=== PATIENT | male | born 1990 | race Caucasian/White ===

== ENCOUNTER 2021-10-20 09:08 | Emergency (ER) | payer OTHER | END 2021-10-20 13:39 | disposition home or self-care (01) | LOC: ER1 09:08 | DX: S16.1XXA Strain of muscle, fascia and tendon at neck level, initial encounter (principal); W19.XXXA Unspecified fall, initial encounter | CPT/HCPCS: 72040; 73030; 99283 ==

== ENCOUNTER 2021-10-24 10:55 | Emergency (ER) | payer OTHER ==
[2021-10-24] MEDS ORDERED: CYCLOBENZAPRINE10 MG PO (13:18)
[2021-10-24] MEDS ORDERED: IBUPROFEN600 MG PO (13:18)
== END 2021-10-24 13:25 | disposition home or self-care (01) ==
LOC: ER1 10:55
DX: S46.911A Strain of unspecified muscle, fascia and tendon at shoulder and upper arm level, right arm, initial encounter (principal); S16.1XXA Strain of muscle, fascia and tendon at neck level, initial encounter; W11.XXXA Fall on and from ladder, initial encounter
CPT/HCPCS: 72125; 99283; J1885; J2360

== ENCOUNTER → 2022-01-28 | Outpatient (CLI) | payer BC ==
[~2022-01-28] MED LIST: CYCLOBENZAPRINE10 MG PO; IBUPROFEN600 MG PO
== END ==
LOC: KOH-I 12:10
DX: N23 Unspecified renal colic (principal)
CPT/HCPCS: 74018